=== PATIENT | male | born 1970 | race Two or more races ===

== ENCOUNTER 2017-08-27 11:31 | Observation (INO) | payer MEDICAID ==
[2017-08-27] MEDS ORDERED: NS 1,000 ML IV ONE (13:12)
--- NOTE | 2017-08-27 13:29 | EDPHY ---
H & P Time Seen by Provider: 08/27/17 11:43 HPI/ROS: CHIEF COMPLAINT: Seizure, hypoglycemia HISTORY OF PRESENT ILLNESS: 47-year-old male presents to the emergency department by ambulance with hypoglycemia after having seizure. The patient is an insulin dependent diabetic and remembers giving himself insulin today. He does not know if he ate anything. He apparently had a blood sugar of 40 in the field and had witnessed tonic-clonic seizure. He was given the D50 in the field and his repeat blood sugar was 130. The patient is complaining of neck pain in upper back pain. He is also complaining of"cramping"in his left lower leg. He denies chest pain or difficulty breathing. Denies abdominal pain. Denies paresthesias in his upper or lower extremities. REVIEW OF SYSTEMS: Constitutional: No fever, no chills. Eyes: No double or blurry vision. ENT: No sore throat. Respiratory: No cough, no shortness of breath. Cardiac: No chest pain. Gastrointestinal: No abdominal pain, vomiting or diarrhea. Genitourinary: No dysuria. Musculoskeletal: Neck, upper back pain as above. Skin: No rashes. Neurological: No headache. Past Medical/Surgical History: Type 1 Insulin-dependent diabetic since age 17 Social History: Single and lives in [place] Smoking Status: Never smoked Physical Exam: General Appearance: Alert, no distress. Abrasion left lower lip. Mentating normally and answering questions appropriately. Cervical collar in place. Eyes: Pupils equal and round. Extraocular motions are all intact. ENT: Mouth: Mucous membranes dry. Respiratory: No wheezing, rhonchi, or rales, lungs are clear to auscultation. Cardiovascular: Regular rate and rhythm. Gastrointestinal: Abdomen is soft and nontender, no masses, no rebound or guarding, bowel sounds normal. No CVA tenderness bilaterally. Neurological: Alert and oriented x 3, cranial nerves II through XII grossly intact Skin: Warm and dry, no rashes. Abrasion noted to the occiput of the scalp no sutures required. Musculoskeletal: Tenderness with palpation along the cervical spine as well as upper thoracic spine. The patient was kept in a cervical collar. Nontender to palpate along the lumbar spine. Extremities: Full range of motion and no peripheral edema. Psychiatric: Patient is oriented X 3, there is no agitation. Constitutional: Initial Vital Signs Temperature (C) 36.5 C 08/27/17 11:36 Heart Rate 88 08/27/17 11:36 Respiratory Rate 16 08/27/17 11:36 Blood Pressure 169/100 H 08/27/17 11:36 O2 Sat (%) 99 08/27/17 11:36 O2 Delivery Mode Room Air Allergies/Adverse Reactions: Pyuojtl-Ecu-Rsb Reductase Inhibitor Allergy (Verified 08/27/17 11:40) Home Medications: Medication Instructions Recorded Aspirin 08/27/17 Insulin NPH Human 08/27/17 Insulin Regular Human 08/27/17 Lisinopril 08/27/17 Medical Decision Making - Diagnostics Imaging Results: Imaging Impressions Cervical Spine CT 08/27/17 11:54 Impression: Head CT within normal limits. 2. CT Cervical Spine Without Contrast, 12:45 History: Trauma. Seizure. Fall. Technique: Multislice helical CT through the cervical spine without contrast from the skull base to T1. Soft tissue and bone evaluation is performed. Sagittal and coronal reconstructions are obtained and reviewed. Dose reduction techniques were utilized. Findings: There is an acute appearing moderate T4 compression abnormality with loss of approximately 50% of height and some retropulsion of the posterior aspect of the vertebral body into the neural canal by approximately 4 mm. The facet joints in the upper thoracic spine remain normally aligned. There are equivocally nondisplaced fractures coursing through the base of the left T4 inferior articulating facet, base of the left T4 lamina and through the spinous processes of T2 and T3. There is also a mild compression of T1 that is of unknown age. Cervical alignment is anatomic. No acute cervical fracture or dislocation is identified. The relationship between skull base and C1 is normal. The C1-C2 articulation is normally aligned. The odontoid process is intact. Disk spaces maintain their normal height, except for moderate, likely degenerative, narrowing of C5-C6 . Facet joints are normally aligned. The cervical thoracic junction is normally aligned. Soft tissue window evaluation does not show evidence of epidural or prevertebral hematoma. Impression: 1. No acute posttraumatic cervical abnormality identified. 2. Definitely acute T4 fracture with retropulsion. Possibly acute fractures of T1, T2 and T3. Consider cervical MRI for further evaluation of the upper thoracic region. Results called to Adry Ayers at 1:34 PM. Final results are concordant with the initial interpretation. General information for patients regarding this examination can be found at [email or web address]. If you have questions or comments about this report, please contact me at (hospital) or [phone] (cell). Head CT 08/27/17 11:54 Impression: Head CT within normal limits. 2. CT Cervical Spine Without Contrast, 12:45 History: Trauma. Seizure. Fall. Technique: Multislice helical CT through the cervical spine without contrast from the skull base to T1. Soft tissue and bone evaluation is performed. Sagittal and coronal reconstructions are obtained and reviewed. Dose reduction techniques were utilized. Findings: There is an acute appearing moderate T4 compression abnormality with loss of approximately 50% of height and some retropulsion of the posterior aspect of the vertebral body into the neural canal by approximately 4 mm. The facet joints in the upper thoracic spine remain normally aligned. There are equivocally nondisplaced fractures coursing through the base of the left T4 inferior articulating facet, base of the left T4 lamina and through the spinous processes of T2 and T3. There is also a mild compression of T1 that is of unknown age. Cervical alignment is anatomic. No acute cervical fracture or dislocation is identified. The relationship between skull base and C1 is normal. The C1-C2 articulation is normally aligned. The odontoid process is intact. Disk spaces maintain their normal height, except for moderate, likely degenerative, narrowing of C5-C6 . Facet joints are normally aligned. The cervical thoracic junction is normally aligned. Soft tissue window evaluation does not show evidence of epidural or prevertebral hematoma. Impression: 1. No acute posttraumatic cervical abnormality identified. 2. Definitely acute T4 fracture with retropulsion. Possibly acute fractures of T1, T2 and T3. Consider cervical MRI for further evaluation of the upper thoracic region. Results called to Adry Ayers at 1:34 PM. Final results are concordant with the initial interpretation. General information for patients regarding this examination can be found at [employer]. If you have questions or comments about this report, please contact me at (hospital) or [phone] (cell). Thoracic Spine X-Ray 08/27/17 11:54 Impression: Radiographically normal thoracic spine. ED Course/Re-evaluation: 47-year-old male who presents to the emergency department by ambulance after having a witnessed seizure related to hypoglycemia. The patient is a known type 1 diabetic. He remembers giving himself insulin but does not remember eating anything. He has had problems with low or labile blood sugars in the past. Apparently in the field the patient had a blood sugar of 40. He was given glucose and his repeat glucose was 130. The patient was in the emergency department for several hours. Multiple attempts were made to try to obtain blood. He did have an IV placed by EMS and his right hand and was given 1 L of IV normal saline. CT scan of the head and cervical spine reveal no intracranial abnormality or cervical spine abnormality. His cervical spine CT scan revealed 50% compression deformity at T4 with some retropulsion and possible posterior elements. Cannot exclude injury to T1, T2 and T3. This was reported by the radiologist. They recommended obtaining MRI. The case was discussed with Dr. Eid, secondary supervising physician who recommended consulting with Neurosurgery. I spoke with the on-call neurosurgeon, Dr. Graham Layton, who agreed with MRI of the thoracic spine. He states that this patient will need a MAINTENANCE HELPER UTILITY ENGINEER brace by Social Work Coordinator. He would like the results of the MRI called to him when the patient comes back from MRI. I remove the patient's cervical collar and the patient was able to move his neck around without any pain or difficulty. The patient does have still persisting pain in his upper thoracic spine. Fingerstick glucose reveals random glucose 36. Patient was given apple juice, peanut butter and crackers. Patient is awaiting MRI of the thoracic spine. Repeat glucose was 97 and 102 30 minutes later. 4:40 p.m.: Dr. Layton arrives to review the patient's MRI and to evaluate the patient. He is comfortable with placing the patient in a MAINTENANCE HELPER UTILITY ENGINEER brace and he can be discharged and follow-up in their office. The patient however continues to have pain. He has difficulty sitting upright without severe pain. 4:50 p.m.: The brother arrives at bedside and tells me that the patient is an alcoholic and drinks daily. The patient tells me that he drinks typically 2 beers per day. He has never had an alcohol withdrawal related seizure. Differential Diagnosis: Back pain including but not limited to muscular pain, herniated disc, spine fracture, intra-abdominal causes and urinary tract infection. Head injury including but not limited to concussion, skull fracture, intraparenchymal contusion, subarachnoid, subdural and epidural hematoma. Seizure including but not limited to electrolyte abnormality, alcohol withdrawal , medication noncompliance, head injury, and breakthrough seizure. - Data Points Laboratory Results: 08/27/17 08/27/17 08/27/17 15:36 14:55 14:29 POC Glucose 102 mg/dL H mg/dL 97 mg/dL mg/dL 36 mg/dL L* mg/dL (70-100) (70-100) (70-100) Medications Given: Discontinued Medications Hydromorphone HCl (Dilaudid) 0.5 mg IVP EDNOW ONE Stop: 08/27/17 14:59 Last Admin: 08/27/17 15:00 Dose: 0.5 mg Sodium Chloride (Ns) 1,000 mls @ 0 mls/hr IV ONCE ONE PRN Reason: Wide Open Stop: 08/27/17 13:13 Last Admin: 08/27/17 13:15 Dose: 1,000 mls Ondansetron HCl (Zofran) 4 mg IVP EDNOW ONE Stop: 08/27/17 13:44 Last Admin: 08/27/17 13:48 Dose: 4 mg Point of Care Test Results: 08/27/17 08/27/17 08/27/17 14:29 14:55 15:36 POC Glucose 36 L* 97 102 H Departure - Departure Disposition: [facility] ([place], [place]) Inpatient Acute Clinical Impression: Hypoglycemia, Seizure Traumatic compression fracture of T4 thoracic vertebra Qualifiers: Encounter type: initial encounter Fracture type: closed Qualified Code(s): S22.040A - Wedge compression fracture of fourth thoracic vertebra, initial encounter for closed fracture Condition: Fair
[2017-08-27] MEDS ORDERED: ONDANSETRON 4 MG/2 ML VIAL IVP ONE (13:43)
[2017-08-27] MEDS ORDERED: HYDROmorphONE/DILAUDID 1 MG/ML INJ IVP ONE (14:58)
[2017-08-27] MEDS ORDERED: ONDANSETRON DISINTEGRATING 4 MG TAB PO PRN (17:08)
[2017-08-27] MEDS ORDERED: ONDANSETRON 4 MG/2 ML VIAL IVP PRN (17:08)
[2017-08-27] MEDS ORDERED: LORazepam 2 MG/ML INJ IVP PRN (17:09)
[2017-08-27] MEDS ORDERED: FLUMAZENIL 0.5 MG/5 ML MDV IVP PRN (17:09)
[2017-08-27] MEDS ORDERED: D50W 25 GM/50 ML SYR IVP PRN (17:10)
[2017-08-27 17:43] LABS: PLATELET COUNT 241 10^3/uL (150-400)
[2017-08-27] MEDS: oxyCODONE IR 5 MG TAB PO PRN ×2 (18:39→22:10)
[2017-08-27] MEDS: NS 1,000 ML IV SCH (18:41)
--- NOTE | 2017-08-27 18:53 | GCON ---
[f rep st] CONSULTATION EMERGENCY ROOM CONSULTATION. DATE OF CONSULTATION: 08/27/2017 CHIEF COMPLAINT: T4 fracture. HISTORY OF PRESENT ILLNESS: The patient is a 47-year-old gentleman with a history of type 1 insulin-dependent diabetes. The patient suffered, what he thinks, was a hypoglycemic seizure earlier today and fell. Patient presented to the emergency department with terrible upper back pain. The patient denies any upper extremity symptoms or lower extremity symptoms at this time. Patient denies any saddle anesthesia or any weakness in his extremities. The patient underwent imaging of the cervical and thoracic spine, and was found to have a T4 compression fracture without retropulsion. The patient denies any issues with bowel or bladder incontinence. REVIEW OF SYSTEMS: A 10-point review of systems was performed, negative aside from what was mentioned in the HPI. PAST MEDICAL HISTORY: Type 1 insulin-dependent diabetic since the age of 17. CURRENT MEDICATIONS: Aspirin, insulin and lisinopril. PAST SURGICAL HISTORY: The patient denies any surgical history. ALLERGIES: Statin drugs. SOCIAL HISTORY: Patient is single. He lives in [place]. FAMILY HISTORY: Reviewed and not contributory to current situation. LABORATORY RESULTS: On admission at 2:28 p.m. blood glucose was 36; most recently at 3:36 p.m. was 102. DIAGNOSTIC IMAGING: CT of the head performed without contrast demonstrated no evidence of hemorrhage, mass lesion, infarction, intracranial edema, hydrocephalus, or other abnormalities. CT of cervical spine performed without contrast demonstrates no acute post- traumatic cervical abnormality. There is an acute T4 fracture with retropulsion , possibly acute fractures of T1, T2, T3. MRI of the thoracic spine performed without contrast demonstrates: 1. An acute T4 compression fracture with posterior element involvement and retropulsion into the thoracic neural canal causing central canal stenosis and cord compression. 2. Mild simple acute T2 compression fracture. 3. Soft tissue injury posteriorly at T2 and T3. 4. Chronic degenerative cord compression at T7, T8. PHYSICAL EXAM: VITAL SIGNS: Blood pressure is 141/81, heart rate 83, respiratory rate 18, oxygen saturation 97% on room air, temperature 36.9 degrees Celsius. HEENT: The patient does have some facial abrasions. The pupils are equal, round, and reactive to light. EOMIs intact. Full visual gupta by confrontation. RESPIRATORY AND CARDIAC: Deferred. ABDOMEN AND GENITOURINARY: Deferred. RECTAL: Deferred. NEUROLOGIC: The patient is awake , alert, oriented to name, place, location, date, time, and situation. His memory is intact to immediate and current events. Speech: No aphasia or dysphonia. Cranial nerves 2-12 are grossly intact. Motor: Patient has 5/5 strength in all muscle groups of bilateral upper and lower extremities to include deltoids, biceps, triceps, brachioradialis, wrist flexion, extensors, linseed oil press tender, intrinsic fingers, iliopsoas, quadriceps, hamstrings, plantar flexion, dorsiflexion, EHL testing. Sensation is grossly intact to light touch throughout all dermatomal distributions bilateral lower extremities. The patient has negative straight leg raise. He is tender to palpation in the upper thoracic region. Reflexes, biceps, triceps, knee jerks 2+/4. Sander sign is negative. Babinski is negative. ASSESSMENT AND PLAN: The patient is a 47-year-old gentleman with a history of type 1 insulin-dependent diabetes. The patient reportedly suffered a hypoglycemic seizure early today and suffered a fall. The patient was brought to the emergency department with complaints of pain in the upper thoracic region. Imaging was found to show an acute T4 compression fracture with some retropulsion causing mild central canal stenosis. The patient also has mild acute T2 compression with soft tissue injury at T2 and T3. Patient is neurologically intact at this time. English Faculty Member Prosthetics is present at the bedside in the emergency department. English Faculty Member is fitting the patient with a AIRPLANE CABIN ATTENDANT brace. We recommend AIRPLANE CABIN ATTENDANT bracing for treatment at this time. We will have him follow up in the office with x-rays of his thoracic spine in 4 weeks. The patient may be discharged home. If he is admitted for pain management, we will continue to follow while in the hospital. The patient was seen and examined by myself and Dr. Layton in the emergency department today, august 27, 2017, at 4:35 p.m. NEUROSURGERY STAFF: I have seen and examined the patient and discussed the case with the PA. I agree with the note above. Graham Layton MD /[id number]/MODL MTDD
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
[2017-08-27] MEDS ORDERED: D50W 25 GM/50 ML VIAL IVP PRN (20:00)
[2017-08-27] MEDS: ACETAMINOPHEN 325 MG TAB PO PRN (22:10)
[2017-08-28] MEDS: oxyCODONE IR 5 MG TAB PO PRN (02:51)
[2017-08-28] MEDS: NS 1,000 ML IV SCH (02:52)
--- NOTE | 2017-08-28 08:25 | NEUSURGPN ---
Assessment/Plan: Assessment: 47 yr old male s/p hypoglycemic seizure/fall with T4 compression fracture, mild stenosis. Mild T2 fracture Plan: -Pain control, attempt to control with oral medications -Na 128, will defer to medicine to manage -MONOGRAM MAKER brace at all times -Patient neurologically intact -Will continue to follow, no surgery indicated at this time -Upright xrays cervical today in brace -Discussed patient with Dr Layton Subjective: Upper back pain Objective: AxO x3 5/5 BUE, BLE Sensation intact to light touch BLE Neuro Check Frequency: per routine Urinary Catheter in Place: No - Physician Discussed Patient with Dr.: Layton Neurosurgery Physical Exam - Vitals, I&O, Labs I and O 08/27/17 08/28/17 08/29/17 05:59 05:59 05:59 Intake Total 2650 Output Total 1050 Balance 1600 Weight 95.254 kg Intake: Oral (ml) 450 IV Infused (ml) 2200 Ns 1,000 ml @ 100 mls/hr 1200 IV CONT GOMEZ Rx#: [id number] Output: Urine (ml) 1050 Urinal 600 Other: Intake Quantity Yes Sufficient Number of Voids Urinal 1 Vital Signs Temp Pulse Resp BP Pulse Ox 36.7 C 75 14 127/80 H 100 08/28/17 07:35 08/28/17 07:35 08/28/17 07:35 08/28/17 07:35 08/28/17 07:35 Laboratory Results 08/27/17 17:30 08/28/17 04:20 ICD10 Worksheet Patient Problems: Problems Problem Status Onset Hypoglycemia Acute Seizure Acute Traumatic compression fracture of T4 thoracic vertebra Acute
[2017-08-28] MEDS ORDERED: THIAMINE HCL 500 MG in NS 100 ML IV SCH (09:00)
[2017-08-28] MEDS: ACETAMINOPHEN 325 MG TAB PO PRN (09:03)
--- NOTE | 2017-08-28 09:19 | ASMTCMCOM ---
CM Note CM Note Notes: Chart reviewed 47 year old male admitted via ED for seizure and hypoglycemia Also suffered a burst fx of T4. per his chart type one diabetic without history of seizure. He lives in [place] with his dad. No surgical intervention required. Needs TBD. Plan: TBD Date Signed: 08/28/2017 09:18 AM Electronically Signed By:Natalia Martinez RN
[2017-08-28] MEDS: INSULIN LISPRO 100 UNIT/ML SC SCH ×2 (09:51→12:09)
[2017-08-28 11:45] VITALS: BP 150/101
--- NOTE | 2017-08-28 12:13 | PDIAF ---
- Diagnosis Diagnosis: hypoglycemia and seizure Code Status: Full Code - Medication Management Discharge Medications: Medications to Continue on Transfer Aspirin [Aspirin 325 mg (*)] 325 mg PO DAILY PRN 08/27/17 [Last Taken 08/27/17] Insulin NPH Human [HumuLIN N] 0 unit SC AD 08/27/17 [Last Taken 08/27/17 09:00] Insulin Regular Human [Humulin R 100 units/ml (*)] 0 unit SC AD 08/27/17 [Last Taken 08/27/17 09:00] Lisinopril [Zestril 40 mg (*)] 40 mg PO DAILY 08/27/17 [Last Taken 08/27/17] Hydrocodone/APAP 5/325 [Zion 5/325 (*)] 1 tab PO Q6H PRN #20 tab 08/28/17 [ Last Taken Unknown] Discharge Medications: Refer to the Discharge Home Medication list for PRN reason. - Orders Services needed: Home Care, Registered Nurse, Physical Therapy Home Care Face to Face: I certify that this patient was under my care and that I had the required [id number] encounter meeting the encounter requirements on the discharge day. My findings support the fact that the patient is homebound as defined in Home Care Face to Face Continued: CMS Chapter 7 Medicare Benefits Manual 30.1.1 , The condition of the patient is such that there exists a normal inability to leave home and consequently, leaving home would require a considerable and taxing effort. Diet Recommendation: ADA 2200 consistent carb Diet Texture: Regular Texture Diet Additional Instructions: Wear PROFESSOR OF VEGETABLE SCIENCE brace at all times. Ok to wear john collar in shower (pink spongy one) Do not lift greater than 10 pounds please reduce your insulin dosing by 1/2 and record blood sugars in morning and evening Please see your PCP in the next 1-2 weeks to review your blood sugars Please see Neurosurgery in the next 4 weeks - Follow Up Care Current Providers and Referrals: Graham Layton MD [Medical Doctor] - follow up as scheduled (Follow up in 4 weeks with xrays thoracic spine ) Law Navarrete [Primary Care Provider] - As per Instructions
--- NOTE | 2017-08-28 14:06 | ASMTLACE ---
LACE Length of stay for Answers: Less than 1 day current admission Comorbidities - select Answers: Diabetes (uncontrolled or all that apply controlled) Other Notes: HTN # of Emergency department Answers: 1-2 visits in the last 6 months Score: 3 Date Signed: 08/28/2017 02:05 PM Electronically Signed By:Natalia Martinez RN
--- NOTE | 2017-08-28 14:06 | ASMTCMCOM ---
CM Note CM Note Notes: Patient medically cleared for discharge to home, [facility] via [facility]. I have provided orders via allscripts. I have provided him with a cab voucher home. CM available should other needs arise. Date Signed: 08/28/2017 02:06 PM Electronically Signed By:Natalia Martinez RN
--- NOTE | 2017-08-28 16:33 | GDS ---
[f rep st] DISCHARGE SUMMARY DISCHARGE DIAGNOSES: Include: 1. Acute T4 burst fracture. 2. Hypoglycemia. 3. Presumed hypoglycemic seizure. 4. Diabetes mellitus. 5. Alcohol use, question abuse. 6. Hypertension. 7. Hyperlipidemia. HISTORY OF PRESENT ILLNESS: A 47-year-old male with a history of insulin-dependent diabetes is broug ht to the emergency department after having a seizure. Was noted to be hypoglycemic in the field wit h a blood glucose of 36, was brought to the emergency department for evaluation and noted to have lynnette k pain during his evaluation. For details of patient's initial presentation, please see the history and physical dated 08/27/2017. CONSULTATIVE SERVICES: Include Neurosurgery. PROCEDURES: None. HOSPITAL COURSE: By issue: 1. Acute T4 burst fracture. Unclear if this is related to the seizure or the fall. However, tori moore was evaluated by Neurosurgery. As this was not thought to be a surgical injury, he had a brace lilibeth dex with confirmatory imaging on positioning post brace. He will be followed in the outpatient [facility] by Neurosurgery. We have asked that the patient receive home physical therapy and occupational [facility] to assist in his ongoing recovery. 2. Hypoglycemia. After discussion with the patient, it is unclear to me if this was entirely prompt ed by inappropriate oral intake after insulin or compounded by additional misuse of alcohol the eveni ng prior. We discussed the importance of all of these as contributors to hypoglycemia. I have recom mended that we reduce his home insulin dosing by half. We have provided him with a glucometer so moshe t he can record his blood sugars twice a day. He is to follow with his outpatient provider in 1-2 we eks. We have explained that will tolerate hyperglycemia in the short term to make sure we are avoidi ng any dangerous lows. He can review his recorded measurements and titrate his regimen accordingly. 3. Seizure. It was a witnessed seizure. Suspect likely related to the blood glucose measured in [facility]. Again, we have made modifications to his diabetes regimen in the short term to assist with this. 4. Alcohol use/abuse. The patient drinks 3-4 beers a night or more. Did discuss the importance of this level of alcohol intake in the setting of insulin and diabetes. The patient will need support i n the outpatient setting ongoing. 5. Hypertension. Patient will be continued on his home lisinopril without alteration. 6. Hyperlipidemia. He will be continued on his home dosing of medications without change. Pending studies at the time of this dictation are none. FOLLOWUP: Followup appointments include: 1. With his PCP in the next 1-2 weeks for the first review of his blood glucose measurements and tit ration of his diabetic regimen. 2. With outpatient neurosurgery in the next 3-4 weeks for followup of his T4 vertebral fracture. I spent greater than 30 minutes in the planning and coordination of this discharge. /[id number]/MODL
--- NOTE | 2017-08-29 14:43 | ASDISCHSUM ---
Discharge Information Plan Status:Home with Home Health Medically Cleared to Leave:08/28/2017 Discharge Date:08/28/2017 05:04 PM D/C Disposition:Home Health Service [facility] D/C Disposition:Home, Routine, Self-Care Projected Discharge Date:08/28/2017 11:00 AM Transportation at D/C:Cab Voucher Discharge Delay Reason: Follow-Up Date:08/28/2017 11:00 AM Discharge Slot: Final Diagnosis: Placement Information Referral Type:*Home Health Care Services Referral ID:[id number] Provider Name:[facility] Address 1:[address] [address] Address 2: City:[place] Selection Factors: State:[place] Patient Contact Information Contact Name:ZEB Relationship: Address: Home Phone: Work Phone: City: [facility] Phone: State/[place] Code: Email: Financial Information Financial Class:Medicaid Primary Plan Desc:MEDICAID HEALTH FIRST BAIT TIER Primary Plan Number:[id number] Secondary Plan Desc: Secondary Plan Number: Assessment Information LACE LACE Length of stay for Answers: Less than 1 day current admission Comorbidities - select Answers: Diabetes (uncontrolled or all that apply controlled) Other Notes: HTN # of Emergency department Answers: 1-2 visits in the last 6 months Score: 3 Date Signed: 08/28/2017 02:05 PM Electronically Signed By:Natalia Martinez RN [facility] CM Progress Note CM Note CM Note Notes: Chart reviewed 47 year old male admitted via ED for seizure and hypoglycemia Also suffered a burst fx of T4. per his chart type one diabetic without history of seizure. He lives in [place] with his dad. No surgical intervention required. Needs TBD. Plan: TBD Date Signed: 08/28/2017 09:18 AM Electronically Signed By:Natalia Martinez RN [facility] CM Progress Note CM Note CM Note Notes: Patient medically cleared for discharge to home, [facility] via [facility]. I have provided orders via [employer]. I have provided him with a cab voucher home. CM available should other needs arise. Date Signed: 08/28/2017 02:06 PM Electronically Signed By:Natalia Martinez RN Intervention Information
[2017-08-31] MEDS ORDERED: THIAMINE HCL 100 MG TAB PO SCH (09:00)
== END 2017-08-28 17:04 | disposition home or self-care (01) ==
LOC: F3N 18:20
PROVIDERS: ADMIT Internal Medicine; ATTEND Internal Medicine
DX: S22.041A Stable burst fracture of fourth thoracic vertebra, initial encounter for closed fracture (principal); E10.649 Type 1 diabetes mellitus with hypoglycemia without coma; R56.9 Unspecified convulsions; E78.5 Hyperlipidemia, unspecified; I10 Essential (primary) hypertension
CPT/HCPCS: 70450; 72070; 72125; 72146; 92523; 96361; 96374; 96375; 97116; 97161; 97166; 97535; 99285; G0378; J1170; J1815; J2405; J3411